=== PATIENT | female | born 1940 | race Caucasian/White ===

== ENCOUNTER 2016-07-03 22:42 | Emergency (ER) | payer OTHER ==
--- NOTE | ~2016-07-03 | US85 ---
[facility] RADIOLOGY TEXT RESULTS PATIENT: ELMA CORONEL LOCATION: [place] : 36 UNIT #: [id number] AGE: [address]: Kerline Anderson SEX: F ORDER DR: [id number] [facility] [address] [place], [place] [address] [id number] MR#: [id number] Acc #: [id number] NAME: ELMA CORONEL. : 1940 SEX: F STUDY DATE/TIME: 07/03/2016 22:20 UNIT: [facility] ROOM: STUDY DESCRIPTION: US LE Veins Unilat or Ltd Stdy Attending Physician: Kerline Anderson Pa-C Ordering Physician: Ed Ramy Watters M.D. Primary Care Physician: Tahmina Boss M.D. MEDICAL IMAGING REPORT This report is preliminary unless electronic signature is present EXAM Venous Doppler ultrasound, right leg. DATE OF EXAM 07/03/2016 HISTORY 76-year-old female in the ED complaining of right lower extremity pain and swelling beginning earlier today. TECHNIQUE Venous ultrasound examination of the right lower extremity was performed using grayscale, spectral Doppler and color flow Doppler imaging. FINDINGS The examination is negative. There is no evidence of right lower extremity deep venous thrombus from the groin to the lower calf. Visualized greater saphenous vein is also patent. IMPRESSION Negative examination. No evidence of right lower extremity DVT. Dictated by... Nima Olivarez M.D. THIS IS AN ELECTRONICALLY VERIFIED REPORT Nima Olivarez M.D. at 07/04/2016 5:58 AM [place]/ede TD: 07/03/2016 23:27 JOB #: [id number] [facility] RADIOLOGY TEXT RESULTS PATIENT: ELMA CORONEL LOCATION: [place] : 38 UNIT #: [id number] AGE: [address]: Kerline Anderson SEX: F ORDER DR: MEDICAL IMAGING REPORT Page 1 of 1 COPY
[~2016-07-03 22:42] MED LIST: ALLERGY MED; ASPIRIN PO; BENICAR PO; CERTAGEN PO; CRESTOR PO; MEDROL DOSEPAK4 MG PO; MEDROL4 MG/DOSE- PO; NAPROXEN250 MG PO; VICODIN 5/1 TAB 5/50 PO
[2016-07-03 22:59] LABS: BASOPHIL# 0.1 X10e3 (0-0.3); BASOPHIL% 0.9 % (0-2.5); EOSINOPHIL# 0.1 X10e3 (0-0.7); EOSINOPHIL% 1.7 % (0.0-7.0); HEMATOCRIT 39.7 % (35.0-45.0); HEMOGLOBIN 12.9 gm/dL (12.0-16.0); LYMPHOCYTE# 2.5 X10e3 (1.0-3.5); LYMPHOCYTE% 29.7 % (17.0-45.0); MEAN CORPUSCULAR HEMOGLOBIN 27.4 PG (28-34); MEAN CORPUSCULAR HGB CONC 32.6 g/dL (30-36); MEAN PLATELET VOLUME 8.5 FL (6.5-11.5); MONOCYTE# 0.8 X10e3 (0-1.0); MONOCYTE% 10.2 % (3.0-12.0); NEUTROPHIL# 4.8 X10e3 (1.5-7.1); NEUTROPHIL% 57.5 % (40-75); PLATELET COUNT 232 X10e3 (140-420); RED BLOOD COUNT 4.72 X10e (3.90-5.30); RED CELL DISTRIBUTION WIDTH 13.7 % (11.0-15.5); WHITE BLOOD COUNT 8.3 X10e3 (4.0-10.5)
[2016-07-03 23:00] LABS: DIFF IND NO
[2016-07-03 23:14] LABS: PARTIAL THROMBOPLASTIN TIME 28.1 SECONDS (23.5-31.3)
[2016-07-03 23:23] LABS: ALBUMIN SERUM 3.7 g/dL (3.5-5.0); BILIRUBIN,TOTAL 0.5 mg/dL (0.2-2.0); BUN/CREATININE RATIO 17.77; CALCIUM SERUM 9.6 mg/dL (8.4-10.2); CREATININE SERUM 0.9 mg/dL (0.6-1.4); GLOM FILT RATE Estimated 61.3 mL/min (>60); POTASSIUM 3.8 mmol/L (3.5-5.1); PROTEIN TOTAL SERUM 6.3 g/dL (6.0-8.3)
== END 2016-07-03 23:53 | disposition home or self-care (01) ==
LOC: CED 22:42
PROVIDERS: Physician Assistant
DX: L03.115 Cellulitis of right lower limb (principal); I10 Essential (primary) hypertension; Z90.710 Acquired absence of both cervix and uterus; Z88.0 Allergy status to penicillin; Z88.2 Allergy status to sulfonamides; Z88.6 Allergy status to analgesic agent; Z91.09 Other allergy status, other than to drugs and biological substances
CPT/HCPCS: 80053; 85025; 85610; 85730; 93971; 99284